=== PATIENT | female | born 1980 | race Caucasian/White ===

== ENCOUNTER 2018-03-03 17:56 | Emergency (ER) | payer SELFPAY ==
[~2018-03-03 17:56] MED LIST: ACET325T11 PO
[2018-03-03 19:07] VITALS: BP 152/83; PULSE 76; RESP 18; TEMP 98.2; O2SAT 100
[2018-03-03] MEDS ORDERED: METOCLOPRAMIDE INJ 10 MG in SODIUM CHLORIDE 0.9% INJ 50 ML IV ONE (22:00)
[2018-03-03] MEDS ORDERED: KETOROLAC TROMETHAMINE 30 MG/ML (IVP) VIAL IV PUSH ONE (22:00)
--- NOTE | 2018-03-03 22:13 | PD ---
HPI Chief Complaint: headache Time Seen by Provider: 21:36 Travel History International Travel<30 days: No Contact w/Intl Traveler<30days: No Traveled to known affect area: No History of Present Illness HPI 37yo F with PMH of nephrolithiasis and migraine headache here with multiple complaints. Pt said she has left sided headache for 4 days. Feels like her migraine headache and it is always on the left side. Associated with photophobia, nausea. Said she has fever but when ask how high it was, her temperature was 99F. So pt does not have fever. Pt has migraine headaches every 2 weeks for years and said she use to have a neurologist and they could not find out what was wrong. Took exedrin and did not help. Pt also complaining of bilateral back pain radiating to her abdomen and said it is her kidney stones. Denies any chest pain, sob, vomiting, dysuria, hematuria, vaginal bleeding or discharge, focal weakness or numbness. PFSH Past Medical History Cardiovascular Problems: Yes Immunizations Current: Yes Tetanus Vaccination: Unknown Influenza Vaccination: No ?: Unknown Social History Alcohol Use: No Tobacco Use: No Substance Use: No Allergies-Medications (Allergen,Severity, Reaction): Coded Allergies: No Known Allergies (Verified Adverse Reaction, Unknown, 03/03/18) Reported Meds & Prescriptions Reported Meds & Active Scripts Active Reported Tylenol 325 Mg Tab (Acetaminophen) 325 Mg Tab 325 Mg PO DIRECTED Review of Systems Except as stated in HPI: all other systems reviewed are Neg Physical Exam Narrative GENERAL: 37yo F in mild distress. SKIN: Focused skin assessment warm/dry. HEAD: Atraumatic. Normocephalic. EYES: Pupils equal and round at 3mm bilaterally. EOMI. ENT: No nasal bleeding or discharge. Mucous membranes pink and moist. NECK: No nuchal rigidity. CARDIOVASCULAR: Regular rate and rhythm. No murmur appreciated. RESPIRATORY: No accessory muscle use. Clear to auscultation. Breath sounds equal bilaterally. GASTROINTESTINAL: Abdomen soft, non-tender, nondistended. No rebound tenderness or guarding. BACK: +CVA tenderness on left. MUSCULOSKELETAL: No obvious deformities. No clubbing. No cyanosis. No edema. NEUROLOGICAL: Awake and alert. No obvious cranial nerve deficits. Motor grossly within normal limits in all extremities. Sensation intact. Normal speech. PSYCHIATRIC: Appropriate mood and affect; insight and judgment normal. Data Data Last Documented VS Vital Signs Date Time Temp Pulse Resp B/P (MAP) Pulse Ox O2 Delivery O2 Flow Rate FiO2 03/04/18 00:11 16 03/03/18 19:07 98.2 76 152/83 (106) 100 Orders Orders Basic Metabolic Panel (Bmp) (03/03/18 21:57) Complete Blood Count With Diff (03/03/18 21:57) Lipase (03/03/18 21:57) Urinalysis - C+S If Indicated (03/03/18 21:57) Ct Abd/Pel W/O Iv Contrast (03/03/18 21:57) Ed Urine Pregnancytest Poc (03/03/18 21:57) Ketorolac Inj (Toradol Inj) (03/03/18 22:00) Metoclopramide Inj (Reglan Inj) (03/03/18 22:00) Ketorolac Inj (Toradol Inj) (03/03/18 22:30) Metoclopramide (Reglan) (03/03/18 22:30) Labs Laboratory Tests Test 03/03/18 22:20 Urine Color LIGHT-YELLOW Urine Turbidity CLEAR Urine pH 7.0 Urine Specific [place] 1.005 Urine Protein NEG mg/dL Urine Glucose (UA) NEG mg/dL Urine Ketones NEG mg/dL Urine Occult Blood NEG Urine Nitrite NEG Urine Bilirubin NEG Urine Urobilinogen LESS THAN 2.0 MG/DL Urine Leukocyte Esterase NEG Urine Squamous Epithelial Cells 2 /hpf Microscopic Urinalysis Comment CULT NOT INDICATED Blood Urea Nitrogen 7 MG/DL Creatinine 0.63 MG/DL Random Glucose 83 MG/DL Calcium Level 9.8 MG/DL Sodium Level 138 MEQ/L Potassium Level 4.3 MEQ/L Chloride Level 107 MEQ/L Carbon Dioxide Level 22.1 MEQ/L Anion Gap 9 MEQ/L Estimat Glomerular Filtration Rate 108 ML/MIN Lipase 129 U/L MDM Medical Decision Making Medical Screen Exam Complete: Yes Emergency Medical Condition: Yes Differential Diagnosis Migraine headache vs. sinus headache vs. nephrolithiasis vs. pyelonephritis Narrative Course 37yo F with left sided headache that feels like her usual migraine headache. No focal neurologic deficits. No nuchal rigidity. Pt has no fever here and at home it was only 99F. Also with left CVA tenderness. Said she has kidney stones and feels like her kidney stone pain for a few days. No abdominal tenderness. Labs reviewed, BMP unremarkable. Normal creatinine. CBC was a recollect and pt refused it. UA negative. Pt given toradol and reglan and headache has resolved. CT a/p showed 9mm mid pole right kidney not causing obstruction. Pt is very well appearing. Return precautions given. Diagnosis Primary Impression: Migraine headache Qualified Codes: G43.909 - Migraine, unspecified, not intractable, without status migrainosus Patient Instructions: General Instructions Departure Forms: Tests/Procedures Additional Instructions: Please follow up with your primary care physician in 2-3 days. Return to the ED if symptoms worsen. Med/Other Pt SpecificInfo: Prescription(s) given Scripts Acetaminophen (Tylenol) 325 Mg Tab 650 MG PO Q6H Y for PAIN SCALE 1 TO 4, #20 TAB 0 Refills Prov: Kaitlyn Morales DO 03/04/18 Disposition: 01 DISCHARGE HOME Condition: Stable Kaityln Morales DO Mar 03, 2018 22:13
[2018-03-03] MEDS ORDERED: METOCLOPRAMIDE HCL 10 MG TAB PO ONE (22:30)
[2018-03-03] MEDS ORDERED: KETOROLAC TROMETHAMINE 60 MG/2 ML (IM) VIAL IM ONE (22:30)
[2018-03-03 22:39] LABS: BILIRUBIN, URINE NEG (NEG); BLOOD, URINE NEG (NEG); GLUCOSE,URINE NEG (NEG); KETONE, URINE NEG (NEG); NITRITE,URINE NEG (NEG); SQUAMOUS EPITHELIAL CELL URINE 2 /hpf (0-5); URINE COLOR LIGHT-YELLOW (YELLW/STRAW); URINE LEUKOCYTE ESTERASE NEG (NEG)
[2018-03-03 23:22] LABS: BICARBONATE 22.1 MEQ/L (21.0-32.0); CALCIUM 9.8 MG/DL (8.5-10.1); CREATININE 0.63 MG/DL (0.50-1.00)
--- NOTE | 2018-03-03 23:25 | RADRPT ---
EXAM DATE: 03/03/2018 11:19 PM EDT AGE/SEX: 37 years / Female INDICATIONS: Left flank pain past 4 days. CLINICAL DATA: This is the patient's initial encounter. Patient reports that signs and symptoms have been present for 4 - 6 days and indicates a pain score of 8/10. MEDICAL/SURGICAL HISTORY: Renal calculi. . RADIATION DOSE: 6.43 CTDI (mGy) COMPARISON: No prior [facility] exams available for comparison. TECHNIQUE: Multiple contiguous axial images were obtained through the abdomen. Images were obtained using multiple row detector helical technique. Using dose reduction techniques, radiation dose was ke pt as low as reasonably achievable to obtain optimal diagnostic quality images. Lack of IV contrast l imits the diagnosis for certain organ pathology. FINDINGS: Lower Lungs: The visualized lower lungs are clear. Liver: The liver has a homogeneous density without space-occupying lesion. There is no dilation of th e biliary tree. The gallbladder is unremarkable. Spleen: Homogeneous density without enlargement. Pancreas: Unremarkable without mass or calcification. Kidneys: Normal in size and shape. No evidence of mass or hydronephrosis. There is a 9 mm stone mid pole right kidney not causing obstruction. The ureters are nondilated. Adrenal Glands: Unremarkable. Aorta: The aorta and proximal iliac vessels are grossly unremarkable without aneurysmal dilation. Bowel/Mesentery: The bowel loops are grossly unremarkable. The cecum and sigmoid colon have a normal configuration. No inflammatory changes are demonstrated. There is stool throughout the colon. Abdominal Wall: Intact. Retroperitoneum: No evidence of adenopathy in the retrocrural, para-aortic, or deep pelvic regions. Bladder: Contours are smooth. No calcified stones. Reproductive Organs: No abnormal masses or calcifications seen. Inguinal: The inguinal region is unremarkable without evidence of adenopathy. Bony Structures: Unremarkable. CONCLUSION: 1. 9 mm stone mid pole right kidney not causing obstruction. Electronically signed by: Barry Chang MD 03/03/2018 11:24 PM EDT
[2018-03-04 00:11] VITALS: RESP 16
[2018-03-04] MEDS ORDERED: TYLE325T PO (00:22)
== END 2018-03-04 00:37 | disposition home or self-care (01) ==
LOC: NEPD 17:56
DX: G43.909 Migraine, unspecified, not intractable, without status migrainosus (principal); N20.0 Calculus of kidney
CPT/HCPCS: 74176; 80048; 81001; 83690; 84703; 96372; 99284; J1885